=== PATIENT | female | born 1985 | race American Indian/Alaskan Native ===

== ENCOUNTER 2018-03-09 16:51 | Emergency (ER) | payer SELFPAY ==
[2018-03-09 17:28] VITALS: BP 118/60
[2018-03-09 18:19] LABS: Bilirubin,Urine NEG (Negative); Blood,Urine NEG (Negative); Color,Urine Yellow (Yellow); Mucus,Urine FEW /HPF; Protein,Urine <15 mg/dL mg/dL (Negative)
[2018-03-09 18:22] LABS: HCG Qualitative,Urine Negative (Negative)
== END 2018-03-09 21:50 | disposition left against medical advice (07) ==
LOC: ED 16:51
DX: R10.84 Generalized abdominal pain (principal); Z53.21 Procedure and treatment not carried out due to patient leaving prior to being seen by health care provider
CPT/HCPCS: 81001; 81025